=== PATIENT | female | born 1965 | race Hispanic/Latino ===

== ENCOUNTER 2024-09-27 22:51 | Emergency (ER) | payer OTHER ==
[~2024-09-27] VITALS: Ht 160 cm; Wt 66.7 kg
[2024-09-27 23:02] VITALS: RESP 20; TEMP 97.8
[2024-09-27 23:39] LABS: BASOPHILS # (AUTO) 0.1 (0.0-0.1); BASOPHILS % 0.8 % (0.0-1.0); EOSINOPHILS # (AUTO) 0.2 (0.0-0.4); EOSINOPHILS % 2.1 % (0.0-6.0); HEMATOCRIT 36.1 % (34.2-44.1); HEMOGLOBIN 11.9 g/dL (12.0-16.0); LYMPHOCYTES # (AUTO) 2.1 (1.0-3.2); LYMPHOCYTES % 25.9 % (18.0-39.1); MEAN CORPUSCULAR HEMOGLOBIN 33.1 pg (28-32); MEAN CORPUSCULAR VOLUME 100.6 fL (81-99); MONOCYTES # (AUTO) 0.7 (0.2-0.8); MONOCYTES % 8.1 % (4.4-11.3); NEUTROPHILS % 62.8 % (38.7-80.0); PLATELET COUNT 358 x10e3/uL (140-360); RED BLOOD COUNT 3.59 x10e6/uL (3.6-5.1); RED CELL DISTRIBUTION WIDTH 12.2 % (11.7-14.4)
[2024-09-27 23:58] LABS: ALBUMIN 3.5 g/dL (3.5-5.0); ALBUMIN/GLOBULIN RATIO 0.8 (0.8-2.0); ANION GAP 16.5 mmol/L (8-16); BILIRUBIN,TOTAL 0.9 mg/dL (0.2-1.2); CALCIUM 9.8 mg/dL (8.4-10.2); CREATININE, SERUM 0.72 mg/dL (0.57-1.11); POTASSIUM 3.5 mmol/L (3.5-5.1)
[2024-09-28 00:15] VITALS: PULSE 70
[2024-09-28 00:21] LABS: FREE THYROXINE INDEX 3.8054 (1.4-3.8); T3 UPTAKE 26.39 % (22.5-37.0); THYROID STIMULATING HORMONE 0.122 uIU/mL (0.350-4.940)
[2024-09-28 00:24] LABS: T4 (THYROXINE) 14.42 ug/dL (4.5-10.9)
[2024-09-28 01:24] VITALS: BP 142/74; O2SAT 96
== END 2024-09-28 01:25 | disposition home or self-care (01) ==
LOC: ER 22:57
DX: R10.10 Upper abdominal pain, unspecified (principal); K82.9 Disease of gallbladder, unspecified; R74.8 Abnormal levels of other serum enzymes; R94.6 Abnormal results of thyroid function studies; I10 Essential (primary) hypertension
CPT/HCPCS: 36415; 71045; 80053; 83690; 83880; 84436; 84443; 84479; 84484; 85025; 93005; 99284